=== PATIENT | female | born 1960 | race Caucasian/White ===

== ENCOUNTER 2021-01-17 16:55 | Observation (INO) ==
[2021-01-17] MEDS: 0.9 % Sodium Chloride 1,000 ML IVC SCH (17:31)
[2021-01-17 17:32] LABS: Basophils # 0.1 K/mcL (0.0-0.2); Basophils % 0.4 %; Eosinophils # 0.4 K/mcL (0.0-0.6); Eosinophils % 2.8 %; Hematocrit 20.1 % (35.3-44.9); Immature Granulocytes % 0.9 % (0-4); Lymphocytes # 1.5 K/mcL (0.6-4.6); Lymphocytes % 11.1 %; Mean Corpuscular HGB Conc 28.9 g/dL (31.6-35.5); Mean Corpuscular Hemoglobin 27.6 pg (28.0-33.3); Mean Corpuscular Volume 95.7 fL (83.0-100.0); Mean Platelet Volume 9.8 fL (9.4-12.4); Monocytes # 1.2 K/mcL (0.0-1.3); Monocytes % 8.9 %; Nucleated Red Blood Cells 0.4 /100 WBC (0); Platelet Count 325 K/mcL (140-400); Red Cell Distribution Width 17.5 % (11.5-14.5); Segmented Neutrophils % 75.9 %; White Blood Count 13.6 K/mcL (4.3-11.1)
[2021-01-17 17:35] LABS: INR 1.2; Prothrombin Time 13.3 Seconds (9.4-12.1)
[2021-01-17 17:38] LABS: Activated Partial Thrombo Time 26.7 Seconds (26.0-36.0)
[2021-01-17 17:39] LABS: Hemoglobin 5.8 g/dL (11.5-15.4); Neutrophils # 10.3 K/mcL (1.6-8.9)
[2021-01-17 17:45] LABS: Calcium 8.4 mg/dL (8.6-10.3); Potassium 3.9 mEq/L (3.5-5.1)
[2021-01-17] MEDS ORDERED: Acetaminophen 325 MG TABLET PO PRN (18:29)
[2021-01-17] MEDS ORDERED: Mag Hydrox/Al Hydrox/Simeth 30 ML UDC PO PRN (18:29)
[2021-01-17] MEDS ORDERED: Naloxone 0.4 MG/ML INJ IVP PRN (18:29)
[2021-01-17] MEDS ORDERED: MOM Conc 10 ML UD.LIQ PO PRN (18:29)
[2021-01-17] MEDS ORDERED: Ondansetron 4 MG/2 ML VIAL IVP PRN (18:29)
[2021-01-17] MEDS ORDERED: Fluticasone Propionate Nasal 50 MCG/SPRAY BOTTLE NS PRN (18:31)
[2021-01-17] MEDS ORDERED: Ipratropium/Albuterol Neb 3 ML IH PRN (18:34)
[2021-01-17] MEDS ORDERED: Furosemide 20 MG/2 ML VIAL IVP ONE (18:35)
[2021-01-17 18:57] LABS: Hypochromasia Present (Not Present); Macrocytosis Present (Not Present); Microcytosis Present (Not Present); Platelet Estimate Normal (Normal); Polychromasia 1+ (Not Present)
[2021-01-17] MEDS: Budesonide/Formoterol 160/4.5 1 PUFF INH IH SCH ×2 (20:34→22:33)
[2021-01-17] MEDS: Melatonin 3 MG TABLET PO PRN (21:21)
[2021-01-17] MEDS: Baclofen 10 MG TABLET PO SCH (21:21)
[2021-01-17] MEDS ORDERED: 0.9 % Sodium Chloride 250 ML ONE (23:03)
[2021-01-18] MEDS ORDERED: 0.9 % Sodium Chloride 250 ML ONE (04:13)
[2021-01-18] MEDS ORDERED: Tiotropium 10 INH DOSE IH ONE (07:43)
[2021-01-18] MEDS: Budesonide/Formoterol 160/4.5 1 PUFF INH IH SCH ×2 (08:02→20:06)
[2021-01-18] MEDS: Tiotropium 10 INH DOSE IH SCH (08:03)
[2021-01-18] MEDS: Magnesium Oxide 400 MG TABLET PO SCH (08:38)
[2021-01-18] MEDS: Loratadine 10 MG TABLET PO SCH (08:38)
[2021-01-18] MEDS: Cholecalciferol (D-3) 1,000 UNIT (25MCG) TABLET PO SCH (08:38)
[2021-01-18] MEDS: lisinopriL 5 MG TABLET PO SCH (08:38)
[2021-01-18] MEDS: Baclofen 10 MG TABLET PO SCH ×2 (08:38→20:27)
[2021-01-18 10:57] LABS: Basophils % 0.4 %; Eosinophils # 0.4 K/mcL (0.0-0.6); Eosinophils % 4.4 %; Hematocrit 25.2 % (35.3-44.9); Hemoglobin 7.6 g/dL (11.5-15.4); Immature Granulocytes % 0.9 % (0-4); Lymphocytes % 10.4 %; Mean Corpuscular HGB Conc 30.2 g/dL (31.6-35.5); Mean Corpuscular Hemoglobin 27.7 pg (28.0-33.3); Mean Platelet Volume 9.8 fL (9.4-12.4); Monocytes # 0.7 K/mcL (0.0-1.3); Monocytes % 7.5 %; Neutrophils # 7.3 K/mcL (1.6-8.9); Nucleated Red Blood Cells 0.3 /100 WBC (0); Platelet Count 283 K/mcL (140-400); Red Blood Count 2.74 M/mcL (3.82-4.97); Red Cell Distribution Width 18.4 % (11.5-14.5); Segmented Neutrophils % 76.4 %; White Blood Count 9.5 K/mcL (4.3-11.1)
[2021-01-18 11:25] LABS: Calcium 8.4 mg/dL (8.6-10.3); Potassium 3.9 mEq/L (3.5-5.1)
[2021-01-18 17:07] LABS: Hematocrit 25.9 % (35.3-44.9); Hemoglobin 7.8 g/dL (11.5-15.4)
[2021-01-18] MEDS: Furosemide 40 MG TABLET PO SCH (17:48)
[2021-01-18] MEDS: Melatonin 3 MG TABLET PO PRN (20:27)
[2021-01-18] MEDS: 0.9 % Sodium Chloride 1,000 ML IVC SCH ×2 (23:25→23:29)
[2021-01-19 06:16] LABS: Basophils % 0.4 %; Eosinophils # 0.6 K/mcL (0.0-0.6); Eosinophils % 6.1 %; Hematocrit 23.7 % (35.3-44.9); Hemoglobin 7.1 g/dL (11.5-15.4); Immature Granulocytes % 0.7 % (0-4); Lymphocytes # 1.1 K/mcL (0.6-4.6); Mean Corpuscular Hemoglobin 27.8 pg (28.0-33.3); Mean Corpuscular Volume 92.9 fL (83.0-100.0); Mean Platelet Volume 10.2 fL (9.4-12.4); Monocytes % 10.3 %; Neutrophils # 6.5 K/mcL (1.6-8.9); Platelet Count 270 K/mcL (140-400); Red Blood Count 2.55 M/mcL (3.82-4.97); Red Cell Distribution Width 18.3 % (11.5-14.5); Segmented Neutrophils % 70.5 %; White Blood Count 9.2 K/mcL (4.3-11.1)
[2021-01-19 06:38] LABS: Calcium 8.3 mg/dL (8.6-10.3); Potassium 4.2 mEq/L (3.5-5.1)
[2021-01-19] MEDS: Cholecalciferol (D-3) 1,000 UNIT (25MCG) TABLET PO SCH (08:30)
[2021-01-19] MEDS: Loratadine 10 MG TABLET PO SCH (08:30)
[2021-01-19] MEDS: Magnesium Oxide 400 MG TABLET PO SCH (08:30)
[2021-01-19] MEDS: lisinopriL 5 MG TABLET PO SCH (08:30)
[2021-01-19] MEDS: Furosemide 40 MG TABLET PO SCH ×2 (08:31→17:12)
[2021-01-19] MEDS: Baclofen 10 MG TABLET PO SCH ×2 (08:31→20:27)
[2021-01-19] MEDS: Budesonide/Formoterol 160/4.5 1 PUFF INH IH SCH ×2 (09:45→21:40)
[2021-01-19] MEDS: Tiotropium 10 INH DOSE IH SCH (09:47)
[2021-01-19] MEDS ORDERED: 0.9 % Sodium Chloride 1,000 ML ONE (17:28)
[2021-01-19 17:39] LABS: % Iron Saturation 26 % (15-50); Iron 113 mcg/dL (50-170); Transferrin 309 mg/dL (203-362)
[2021-01-19 17:54] LABS: Folate 11.1 ng/mL (3.0-16.0)
[2021-01-19 21:15] VITALS: BP 127/69
== END 2021-01-19 21:58 | disposition home health service (06) ==
LOC: INPPIK 16:55 → EMEROOPIK 16:55 → INPPIK 18:51
PROVIDERS: ADMIT Family Medicine; ATTEND Family Medicine